=== PATIENT | male | born 1950 | race Caucasian/White ===

== ENCOUNTER → 2016-10-15 | Outpatient (CLI) | payer MEDICARE ==
[2016-10-15 09:25] LABS: Basophils % (A) 1 %; CH 33.1; CHCM 32.6; Eosinophils # (A) 0.1 k/uL (0-0.7); Eosinophils % (A) 2 %; HDW 2.69; Luc # (Auto) 0.13; Luc % (Auto) 3; Lymphocytes # (A) 0.8 k/uL (1.0-4.8); Lymphocytes % (A) 20 %; MCH 34.9 pg (25.0-35.0); MCHC 34.2 g/dL (31.0-37.0); MCV 102.2 fL (80.0-100.0); Macrocytosis Slight; Mean Platelet Volume 7.7; Monocytes # (A) 0.3 k/uL (0-1.0); Monocytes % (A) 8 %; Neutrophils # (A) 2.7 k/uL (1.3-7.7); Neutrophils % (A) 66 %; RDW 14.6 % (11.5-15.5); WBC 4.1 k/uL (3.8-10.6); WBC (Perox) 3.56
[2016-10-15 09:37] LABS: ALT 38 U/L (21-72); AST 30 U/L (17-59); Alkaline Phosphatase 107 U/L (38-126); Anion Gap 7 mmol/L; Blood Urea Nitrogen 18 mg/dL (9-20); Calcium 9.3 mg/dL (8.4-10.2); Carbon Dioxide 29 mmol/L (22-30); Chloride 105 mmol/L (98-107); Cholesterol 154 mg/dL (<200); Glucose 91 mg/dL (74-99); HDL Cholesterol 65 mg/dL (40-60); Non-African American GFR(MDRD) >60 (>60 ml/min/1.73 sqM); Sodium 141 mmol/L (137-145); Total Protein 6.9 g/dL (6.3-8.2); Triglycerides 121 mg/dL (<150)
[2016-10-15 09:43] LABS: Potassium 5.4 mmol/L (3.5-5.1)
== END | disposition home or self-care (01) ==
LOC: LABWHC1 08:55
PROVIDERS: ATTEND Internal Medicine
DX: I25.10 Atherosclerotic heart disease of native coronary artery without angina pectoris (principal)
CPT/HCPCS: 36415; 80053; 80061; 85025

== ENCOUNTER 2018-04-21 13:35 | Inpatient (IN) | payer MEDICARE ==
[2018-04-21] MEDS ORDERED: ONDANSETRON 4 MG/2 ML VIAL IVP STA (13:50)
[2018-04-21] MEDS ORDERED: MORPHINE SULFATE 4 MG/ML SYRINGE IVP STA (13:50)
--- NOTE | 2018-04-21 13:59 | ED ---
Lower Extremity Injury HPI - General Chief Complaint: Extremity Injury, Lower Stated Complaint: Fall/hip pain Time Seen by Provider: 04/21/18 13:41 Source: patient, EMS, RN notes reviewed Mode of arrival: EMS Limitations: no limitations - History of Present Illness Initial Comments: 68-year-old male presents emergency Department chief complaint of fall. Patient states he fell no night was able to get back in his bed but states he was not able to get out. Family kept calling noticed that he was on instantly went to check on him and noticed that he was still in bed. Patient states that he had a mechanical fall there is no loss conscious. Denies any head injury. Patient complains of left hip pain. Patient's had prior orthopedic surgery by Dr. Yates on his back. Patient states that he has no chest pain or shortness breath no nausea vomiting. Patient states his pain is a 10 out of 10 at this time he was not given pain meds by EMS. - Related Data Home Medications Medication Instructions Recorded Confirmed Aspirin EC [Ecotrin Low Dose] 81 mg PO DAILY 04/21/18 04/21/18 Atorvastatin [Lipitor] 20 mg PO HS 04/21/18 04/21/18 Ergocalciferol (Vitamin D2) 50,000 unit PO TH 04/21/18 04/21/18 [Vitamin D2] Fish Oil/Dha/Epa [Fish Oil 1,200 1 cap PO DAILY 04/21/18 04/21/18 mg Fish Oil] Gabapentin 600 mg PO TID 04/21/18 04/21/18 Hydrocodone/Acetaminophen [[place] 1 tab PO BID PRN 04/21/18 04/21/18 10-325] rOPINIRole HCL [Requip] 1 mg PO HS 04/21/18 04/21/18 Allergies Allergy/AdvReac Type Severity Reaction Status Date / Time Penicillins AdvReac Unknown Verified 04/21/18 14:07 Review of Systems ROS Statement: Those systems with pertinent positive or pertinent negative responses have been documented in the HPI. ROS Other: All systems not noted in ROS Statement are negative. Past Medical History Past Medical History: CVA/TIA, Hyperlipidemia, Hypertension Additional Past Medical History / Comment(s): Back pain History of Any Multi-Drug Resistant Organisms: Unobtainable Past Surgical History: Back Surgery Past Psychological History: No Psychological Hx Reported Smoking Status: Current every day smoker Past Alcohol Use History: Rare Past Drug Use History: Marijuana General Exam Limitations: no limitations General appearance: alert, in no apparent distress Head exam: Present: atraumatic, normocephalic, normal inspection Eye exam: Present: normal appearance, PERRL, EOMI. Absent: scleral icterus, conjunctival injection, periorbital swelling Respiratory exam: Present: normal lung sounds bilaterally. Absent: respiratory distress, wheezes, rales, rhonchi, stridor Cardiovascular Exam: Present: regular rate, normal rhythm, normal heart sounds. Absent: systolic murmur, diastolic murmur, rubs, gallop, clicks GI/Abdominal exam: Present: soft, normal bowel sounds. Absent: distended, tenderness, guarding, rebound, rigid Extremities exam: Present: other (Shortening rotation noted of the left leg, tenderness the left hip, pulses equal bilaterally lower extremity no discoloration equal warmth) Neurological exam: Present: alert, oriented X3, CN II-XII intact, reflexes normal. Absent: motor sensory deficit Skin exam: Present: warm, dry, intact, normal color. Absent: rash Course Vital Signs 04/21/18 04/21/18 13:37 14:41 Temperature 98.2 F Pulse Rate 99 97 Respiratory 18 16 Rate Blood Pressure 144/111 149/77 O2 Sat by Pulse 90 L 95 Oximetry Medical Decision Making - Medical Decision Making [age] male present emergency from for fall left hip pain. Patient has left from all night fracture. Case discussed with Connie with orthopedics associate patient will be admitted - Lab Data Result diagrams: 04/21/18 14:01 04/21/18 14:01 Lab Results 04/21/18 04/21/18 Range/Units 14:01 14:01 WBC 11.7 H (3.8-10.6) k/uL RBC 4.99 (4.30-5.90) m/uL Hgb 16.5 (13.0-17.5) gm/dL Hct 50.2 (39.0-53.0) % MCV 100.4 H (80.0-100.0) fL MCH 33.0 (25.0-35.0) pg MCHC 32.8 (31.0-37.0) g/dL RDW 14.8 (11.5-15.5) % Plt Count 149 L (150-450) k/uL Neutrophils % 89 % Lymphocytes % 4 % Monocytes % 6 % Eosinophils % 1 % Basophils % 0 % Neutrophils # 10.3 H (1.3-7.7) k/uL Lymphocytes # 0.5 L (1.0-4.8) k/uL Monocytes # 0.7 (0-1.0) k/uL Eosinophils # 0.1 (0-0.7) k/uL Basophils # 0.0 (0-0.2) k/uL Macrocytosis Slight Sodium 138 (137-145) mmol/L Potassium 5.0 (3.5-5.1) mmol/L Chloride 105 (98-107) mmol/L Carbon Dioxide 26 (22-30) mmol/L Anion Gap 7 mmol/L BUN 10 (9-20) mg/dL Creatinine 0.87 (0.66-1.25) mg/dL Est GFR (CKD-EPI)AfAm >90 (>60 ml/min/1.73 sqM) Est GFR (CKD-EPI)NonAf 88 (>60 ml/min/1.73 sqM) Glucose 122 H (74-99) mg/dL Calcium 9.3 (8.4-10.2) mg/dL Total Bilirubin 1.0 (0.2-1.3) mg/dL AST 27 (17-59) U/L ALT 35 (21-72) U/L Alkaline Phosphatase 104 (38-126) U/L Total Protein 6.3 (6.3-8.2) g/dL Albumin 3.7 (3.5-5.0) g/dL Disposition Clinical Impression: Left displaced femoral neck fracture Disposition: ADMITTED IP TO THIS HOSP Condition: Fair Referrals: Radha Ponce MD [Primary Care Provider] - 1-2 days
[2018-04-21 14:17] LABS: Basophils % (A) 0 %; Eosinophils # (A) 0.1 k/uL (0-0.7); Eosinophils % (A) 1 %; HCT 50.2 % (39.0-53.0); HGB 16.5 gm/dL (13.0-17.5); Lymphocytes # (A) 0.5 k/uL (1.0-4.8); Lymphocytes % (A) 4 %; MCHC 32.8 g/dL (31.0-37.0); MCV 100.4 fL (80.0-100.0); Macrocytosis Slight; Mean Platelet Volume 7.3; Monocytes # (A) 0.7 k/uL (0-1.0); Monocytes % (A) 6 %; Neutrophils # (A) 10.3 k/uL (1.3-7.7); Neutrophils % (A) 89 %; Platelet Count 149 k/uL (150-450); RBC 4.99 m/uL (4.30-5.90); RDW 14.8 % (11.5-15.5); WBC 11.7 k/uL (3.8-10.6)
[2018-04-21 14:31] LABS: ALT 35 U/L (21-72); AST 27 U/L (17-59); Albumin 3.7 g/dL (3.5-5.0); Alkaline Phosphatase 104 U/L (38-126); Anion Gap 7 mmol/L; Blood Urea Nitrogen 10 mg/dL (9-20); Calcium 9.3 mg/dL (8.4-10.2); Carbon Dioxide 26 mmol/L (22-30); Chloride 105 mmol/L (98-107); Glucose 122 mg/dL (74-99); Sodium 138 mmol/L (137-145); Total Protein 6.3 g/dL (6.3-8.2)
[2018-04-21 14:32] LABS: Partial Thromboplastin Time 21.5 sec (22.0-30.0); Prothrombin Time 9.6 sec (9.0-12.0)
[2018-04-21] MEDS ORDERED: HYDROmorphone 1 MG/ML 1 ML SYRINGE IVP STA (14:38)
[2018-04-21] MEDS ORDERED: NICOTINE 21MG/24HR PATCH TRANSDERM STA (14:43)
--- NOTE | 2018-04-21 14:45 | XR ---
EXAMINATION TYPE: XR Hip LT and AP Pelvis DATE OF EXAM: 04/21/2018 COMPARISON: NONE HISTORY: Trauma and pain TECHNIQUE: A single AP view of the pelvis is obtained. Two views of the left hip are obtained. FINDINGS: Left femoral neck fracture appears comminuted and there is resulting varus deformity. No di slocation. Vascular calcifications noted within the pelvis. There is a generator in the left gluteal region. Degenerative disc changes are noted incidentally in the lower lumbar spine. IMPRESSION: Left hip fracture.
[2018-04-21] MEDS ORDERED: HYDROmorphone 1 MG/ML 1 ML SYRINGE IVP PRN (14:59)
[2018-04-21] MEDS ORDERED: NALOXONE 0.4 MG/ML 1 ML VIAL IV PRN (14:59)
--- NOTE | 2018-04-21 15:05 | XR ---
EXAMINATION TYPE: XR chest 1V DATE OF EXAM: 04/21/2018 COMPARISON: 03/19/2012 HISTORY: Fall, pain TECHNIQUE: Single frontal view of the chest is obtained. FINDINGS: There is no focal air space opacity, pleural effusion, or pneumothorax seen. The cardiac silhouette size is within normal limits. Scoliosis within the thoracic spine. Stimulator leads are in the midline. IMPRESSION: 1. No acute process.
[2018-04-21] MEDS: SODIUM CHLORIDE 0.9% 1,000 ML IV SCH (20:00)
[2018-04-21 20:05] LABS: Appearance,Urine Clear (Clear); Bacteria,Urine Rare /hpf; Bilirubin,Urine Negative (Negative); Blood,Urine Negative (Negative); Color,Urine Yellow; Glucose,Urine (UA) Negative (Negative); Ketones,Urine 1+ (Negative); Leukocyte Esterase,Urine Negative (Negative); Mucus,Urine Moderate /hpf; Nitrite,Urine Negative (Negative); Protein,Urine 1+ (Negative); RBC,Urine 2 /hpf (0-5); Specific Gravity,Urine 1.022 (1.001-1.035); WBC,Urine 1 /hpf (0-5)
[2018-04-21] MEDS: ATORVASTATIN 20 MG TAB PO SCH (23:09)
[2018-04-21] MEDS: HYDROmorphone 1 MG/ML 1 ML SYRINGE IVP PRN (23:10)
[2018-04-22] MEDS: HYDROmorphone 1 MG/ML 1 ML SYRINGE IVP PRN ×6 (02:48→22:24)
[2018-04-22] MEDS: SODIUM CHLORIDE 0.9% 1,000 ML IV SCH ×2 (04:27→18:51)
--- NOTE | 2018-04-22 08:52 | P.HPOR ---
History of Present Illness H&P Date: 04/22/18 This is a 68-year-old male who is admitted for left hip fracture. Patient states that he fell backwards yesterday and hit his head and his left hip. Patient states that he was unable to stand up after this. X-rays done in the emergency room show a femoral neck fracture of the left femur. Patient denies being on any anticoagulation. Patient's past medical history significant for coronary artery disease, COPD, CVA/TIA, GERD, hyperlipidemia and hypertension. Patient denies any fever/chills, numbness, weakness, tingling, abdominal pain, shortness of breath or chest pain. Review of Systems See HPI. Past Medical History Past Medical History: Coronary Artery Disease (CAD), COPD, CVA/TIA, GERD/Reflux , Hyperlipidemia, Hypertension Additional Past Medical History / Comment(s): "age 29 fell off a bridge / damaged lower vertebre,Back pain ,constipation d/t pain meds, arthritis, per [facility] 2011 gave hx of past mi 1994- family unable to verify this. 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 AAA- SIZE UNK History of Any Multi-Drug Resistant Organisms: Unobtainable Past Surgical History: Back Surgery, Cholecystectomy Past Anesthesia/Blood Transfusion Reactions: No Reported Reaction Smoking Status: Current every day smoker - Past Family History Father Family Medical History: No Reported History Mother Additional Family Medical History / Comment(s): polio Medications and Allergies Home Medications Medication Instructions Recorded Confirmed Type Aspirin EC [Ecotrin Low Dose] 81 mg PO DAILY 04/21/18 04/21/18 History Atorvastatin [Lipitor] 20 mg PO HS 04/21/18 04/21/18 History Ergocalciferol (Vitamin D2) 50,000 unit PO TH 04/21/18 04/21/18 History [Vitamin D2] Fish Oil/Dha/Epa [Fish Oil 1,200 1 cap PO DAILY 04/21/18 04/21/18 History mg Fish Oil] Gabapentin 600 mg PO TID 04/21/18 04/21/18 History Hydrocodone/Acetaminophen [[place] 1 tab PO BID PRN 04/21/18 04/21/18 History 10-325] rOPINIRole HCL [Requip] 1 mg PO HS 04/21/18 04/21/18 History Allergies Allergy/AdvReac Type Severity Reaction Status Date / Time Penicillins AdvReac Unknown Verified 04/21/18 14:07 Physical Examination On exam patient is lying comfortably in no acute distress. There is tenderness to palpation over the left hip. Left lower extremity is shortened and externally rotated. Calf is soft and nontender to palpation. Patient has full foot and ankle motion without pain or difficulty. Dorsalis pedis pulses 2+. Neurovascular status and circulatory status are intact. Exams of the head, neck , bilateral upper extremities and right lower extremity are within normal limits. Results X-rays of the left hip and pelvis show a displaced femoral neck fracture of the left femur. - Labs Labs: Abnormal Lab Results - Last 24 Hours (Table) 04/21/18 04/21/18 04/21/18 Range/Units 14:01 14:01 14:01 WBC 11.7 H (3.8-10.6) k/uL MCV 100.4 H (80.0-100.0) fL Plt Count 149 L (150-450) k/uL Neutrophils # 10.3 H (1.3-7.7) k/uL Lymphocytes # 0.5 L (1.0-4.8) k/uL APTT 21.5 L (22.0-30.0) sec Glucose 122 H (74-99) mg/dL Urine Protein (Negative) Urine Ketones (Negative) Urine Bacteria (None) /hpf Urine Mucus (None) /hpf 04/21/18 Range/Units 19:30 WBC (3.8-10.6) k/uL MCV (80.0-100.0) fL Plt Count (150-450) k/uL Neutrophils # (1.3-7.7) k/uL Lymphocytes # (1.0-4.8) k/uL APTT (22.0-30.0) sec Glucose (74-99) mg/dL Urine Protein 1+ H (Negative) Urine Ketones 1+ H (Negative) Urine Bacteria Rare H (None) /hpf Urine Mucus Moderate H (None) /hpf H & H 04/21/18 Range/Units 14:01 Hgb 16.5 (13.0-17.5) gm/dL Hct 50.2 (39.0-53.0) % Coagulation 04/21/18 Range/Units 14:01 INR 1.0 (<1.2) Result Diagrams: 04/21/18 14:01 04/21/18 14:01 Assessment and Plan Assessment: Coronary artery disease COPD CVA/TIA GERD Hyperlipidemia Hypertension (1) Fall Current Visit: Yes Status: Acute Code(s): W19.XXXA - UNSPECIFIED FALL, INITIAL ENCOUNTER SNOMED Code(s): 4696940 (2) Left displaced femoral neck fracture Current Visit: Yes Status: Acute Code(s): S72.002A - FRACTURE OF UNSP PART OF NECK OF LEFT FEMUR, INIT SNOMED Code(s): 9197861 Plan: 1. Nonweightbearing to the left lower extremity. 2. Rest and ice the left hip. 3. Continue pain control. 4. Left hip hemiarthroplasty is scheduled for today pending medical clearance and consent.
[2018-04-22] MEDS: GABAPENTIN 300 MG CAP PO SCH ×2 (09:40→20:01)
[2018-04-22] MEDS ORDERED: BUDESONIDE 1 MG/2 ML NEBU INHALATION SCH (11:00)
[2018-04-22] MEDS ORDERED: IPRATROPIUM-ALBUTEROL 3 ML NEB INHALATION PRN (11:22)
[2018-04-22] MEDS ORDERED: IPRATROPIUM-ALBUTEROL 3 ML NEB INHALATION SCH (12:00)
[2018-04-22] MEDS: NICOTINE 21MG/24HR PATCH TRANSDERM SCH (12:29)
--- NOTE | 2018-04-22 13:11 | P.CONS ---
History of Present Illness - Reason for Consult Consult date: 04/22/18 Medical management - History of Present Illness This is a 68-year-old male patient Dr. Ponce with a past medical history of CVA, myocardial infarction, cardiomyopathy, cirrhosis of the liver, AAA being monitored by Dr. Harika Ariza, emphysema, chronic pain status post previous back surgery, pain stimulator placement, tobacco use and dependence. Patient apparently fell in the morning approximately 1 AM while trying to get the bathroom with his walker. He and up falling backwards and hit his head on the bed and landed on his left side. He was not found until 11 hours later. He normally has a shuffling gait but family deny history of Parkinson's. His last fall was 1 year ago. He currently lives with his daughter in a [id number] suite. Patient came into [facility] emergency center for evaluation. Left hip x-ray and pelvis showed a left hip fracture. Chest x-ray showed no acute findings. Hemoglobin was 16.5, white count 11.7, platelet count 149, creatinine 0.87, blood sugar 122. Patient denies history of diabetes. Patient is been admitted under the care of orthopedics with plan for hemiarthroplasty later today which will be postponed. We will ask for clearance from cardiology and primary medicine. Patient will be started on DuoNeb treatments, inhaled steroids, nicotine patch and EKG ordered. Review of Systems All systems: negative Constitutional: Denies chills, Denies fatigue, Denies fever, Denies lethargy, Denies malaise, Denies poor appetite, Denies weight loss Eyes: denies blurred vision, denies pain Ears, nose, mouth and throat: Denies dysphagia, Denies headache, Denies hoarseness, Denies sore throat, Denies vertigo Cardiovascular: Reports shortness of breath, Denies chest pain, Denies decreased exercise tolerance, Denies dyspnea on exertion, Denies edema, Denies leg edema, Denies lightheadedness, Denies palpitations, Denies syncope Respiratory: Reports cough, Reports dyspnea, Reports wheezing, Denies cough with sputum, Denies excessive sputum, Denies hemoptysis, Denies home oxygen Gastrointestinal: Denies abdominal pain, Denies diarrhea, Denies loss of appetite, Denies melena, Denies nausea, Denies vomiting Genitourinary: Denies dysuria, Denies urinary retention Musculoskeletal: Reports gait dysfunction, Reports low back pain, Reports muscle weakness, Denies frequent falls, Denies myalgias Integumentary: Denies pruritus, Denies rash, Denies wounds Neurological: Reports balance difficulties, Reports gait dysfunction, Denies aphasia, Denies change in mentation, Denies confusion, Denies numbness, Denies weakness Psychiatric: Denies anxiety, Denies confusion, Denies depression Endocrine: Denies fatigue, Denies weight change Past Medical History Past Medical History: Coronary Artery Disease (CAD), COPD, CVA/TIA, GERD/Reflux , Hyperlipidemia, Hypertension Additional Past Medical History / Comment(s): "age 29 fell off a bridge / damaged lower vertebre,Back pain ,constipation d/t pain meds, arthritis, per [facility] 2011 gave hx of past mi 1994- family unable to verify this. 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 AAA- SIZE UNK History of Any Multi-Drug Resistant Organisms: Unobtainable Past Surgical History: Back Surgery, Cholecystectomy Additional Past Surgical History / Comment(s): Lumbar spine surgery, pain stimulator Past Anesthesia/Blood Transfusion Reactions: No Reported Reaction Smoking Status: Current every day smoker Additional Past Alcohol Use History / Comment(s): Patient is a smoker one and half packs per day for more than 40 years. He does have a history of heavy alcohol use but has not used a long time. He smokes marijuana on a daily basis. He does not have a medical marijuana card. He denies any other illicit drug use. Patient is . He lives at his daughter's in a [id number] suite. Patient is currently on disability since age 51 secondary to stroke. - Past Family History Father Family Medical History: No Reported History Mother Additional Family Medical History / Comment(s): polio Medications and Allergies Home Medications Medication Instructions Recorded Confirmed Type Aspirin EC [Ecotrin Low Dose] 81 mg PO DAILY 04/21/18 04/21/18 History Atorvastatin [Lipitor] 20 mg PO HS 04/21/18 04/21/18 History Ergocalciferol (Vitamin D2) 50,000 unit PO TH 04/21/18 04/21/18 History [Vitamin D2] Fish Oil/Dha/Epa [Fish Oil 1,200 1 cap PO DAILY 04/21/18 04/21/18 History mg Fish Oil] Gabapentin 600 mg PO TID 04/21/18 04/21/18 History Hydrocodone/Acetaminophen [[place] 1 tab PO BID PRN 04/21/18 04/21/18 History 10-325] rOPINIRole HCL [Requip] 1 mg PO HS 04/21/18 04/21/18 History Allergies Allergy/AdvReac Type Severity Reaction Status Date / Time Penicillins AdvReac Unknown Verified 04/21/18 14:07 Physical Exam Vitals: Vital Signs Temp Pulse Pulse Resp BP BP Pulse Ox 04/22/18 07:00 98.2 F 54 L 12 121/88 92 L 04/21/18 23:58 98.9 F 114 H 15 149/76 94 L 04/21/18 19:44 98.2 F 80 16 139/79 92 L 04/21/18 17:05 98.5 F 93 16 151/84 92 L 04/21/18 16:45 86 16 94/68 94 L 04/21/18 14:41 97 16 149/77 95 04/21/18 13:37 98.2 F 99 18 144/111 90 L Intake and Output 04/21/18 04/22/18 04/22/18 22:59 06:59 14:59 Intake Total 600 Output Total 100 Balance 600 -100 Intake: Intake, IV Titration 600 Amount Sodium Chloride 0.9% 1, 600 000 ml @ 75 mls/hr IV . [id number] [facility] Rx#:[id number] Output: Urine 100 Other: Voiding Method Indwelling Catheter Gen: This is a thin appearing 68-year-old male. He is in bed and appears to be comfortable. Patient answers questions appropriately. HEENT: Head is atraumatic, normocephalic. Pupils equal, round. Sclerae is anicteric. NECK: Supple. No JVD. No lymphadenopathy. No thyromegaly. LUNGS: Clear to auscultation. No wheezes or rhonchi. No intercostal retractions. HEART: Regular rate and rhythm. No murmur. ABDOMEN: Soft. Bowel sounds are present. No masses. No tenderness. EXTREMITIES: No pedal edema. No calf tenderness. Shortening and rotation of the left leg with tenderness to the left hip area. Dorsalis pedis is palpable bilaterally. NEUROLOGICAL: Patient is awake, alert and oriented x3. Cranial nerves 2 through 12 are grossly intact. Results CBC & Chem 7: 04/21/18 14:01 04/21/18 14:01 Labs: Abnormal Lab Results - Last 24 Hours (Table) 04/21/18 04/21/18 04/21/18 Range/Units 14:01 14:01 14:01 WBC 11.7 H (3.8-10.6) k/uL MCV 100.4 H (80.0-100.0) fL Plt Count 149 L (150-450) k/uL Neutrophils # 10.3 H (1.3-7.7) k/uL Lymphocytes # 0.5 L (1.0-4.8) k/uL APTT 21.5 L (22.0-30.0) sec Glucose 122 H (74-99) mg/dL Urine Protein (Negative) Urine Ketones (Negative) Urine Bacteria (None) /hpf Urine Mucus (None) /hpf 04/21/18 Range/Units 19:30 WBC (3.8-10.6) k/uL MCV (80.0-100.0) fL Plt Count (150-450) k/uL Neutrophils # (1.3-7.7) k/uL Lymphocytes # (1.0-4.8) k/uL APTT (22.0-30.0) sec Glucose (74-99) mg/dL Urine Protein 1+ H (Negative) Urine Ketones 1+ H (Negative) Urine Bacteria Rare H (None) /hpf Urine Mucus Moderate H (None) /hpf Assessment and Plan Plan: 1. Left hip fracture admitted under the care of orthopedics with plan for left hemiarthroplasty. Requesting that surgery be delayed until tomorrow. We will have asked for clearance from pulmonary medicine and cardiology. Patient started on nebulizer treatments and EKG ordered. 2. History of stroke. Patient on aspirin 81 mg, Lipitor and fish oil. 3. Abdominal aortic aneurysm being monitored by Dr. Ponce. 4. COPD with mild exacerbation. Patient started on DuoNeb treatments, Symbicort. Pulmicort consult requested. 5. Tobacco use and dependence. Nicotine patch. 6. History of cirrhosis of the liver. Patient has no recent alcohol intake. 7. Patient gives history of myocardial infarction. No complaints of chest pain at this time EKG ordered and cardiology consult. 8. Chronic pain syndrome, chronic low back pain status post surgery and pain stimulator. Continue [place], gabapentin, Requip. 9. Hyperlipidemia. Continue Lipitor. Fish oil on hold. 10. DVT prophylaxis. 11. GI prophylaxis. Pepcid. Patient will be admitted to the hospital for a minimum of 2 night stay. Discharge plan: Subacute rehab Impression and plan of care have been directed as dictated by the signing physician. Sammie Pena nurse practitioner acting as scribe for signing physician.
--- NOTE | 2018-04-22 13:36 | P.CNPUL ---
History of Present Illness Consult date: 04/22/18 Requesting physician: Richi Gan Reason for consult: other Chief complaint: Preoperative pulmonary clearance, left displaced femoral neck fracture History of present illness: This is a 68-year-old white male patient Dr. Ponce, who was brought into the emergency department on 04/21/2018 after falling at home, sustaining a hip fracture. Patient fell backwards yesterday at his home, he hit his head and his left hip. He was unable to stand up, or bear weight on the left leg. X- rays were done in the emergency department and showed a femoral neck fracture of the left femur. Patient's past medical history is significant for coronary artery disease, COPD, he is not on oxygen at his baseline, he is a former smoker , he carries [id number] smoking history, previous history of CVA/TIA, GERD, hypertension and hyperlipidemia. Patient was evaluated by orthopedic surgery, and he was recommended for left hip hemiarthroplasty pending medical clearance and consent. From pulmonary standpoint patient denies any shortness of breath, patient does have an extensive smoking history, but he is typically not short of breath on a regular basis. Patient is not on any inhalers on a regular basis. Physical exam reveals diminished breath sounds bilaterally, his chest x- ray showed no acute process. He is currently on 2 L per nasal cannula, and his pulse ox is 94%, patient has been afebrile, hemodynamically stable. Review of Systems All systems: negative Constitutional: Denies chills, Denies fever Eyes: denies blurred vision, denies pain Ears, nose, mouth and throat: Denies headache, Denies sore throat Cardiovascular: Denies chest pain, Denies shortness of breath Respiratory: Denies cough Gastrointestinal: Denies abdominal pain, Denies diarrhea, Denies nausea, Denies vomiting Musculoskeletal: Denies myalgias Integumentary: Denies pruritus, Denies rash Neurological: Denies numbness, Denies weakness Psychiatric: Denies anxiety, Denies depression Endocrine: Denies fatigue, Denies weight change Past Medical History Past Medical History: Coronary Artery Disease (CAD), COPD, CVA/TIA, GERD/Reflux , Hyperlipidemia, Hypertension Additional Past Medical History / Comment(s): "age 29 fell off a bridge / damaged lower vertebre,Back pain ,constipation d/t pain meds, arthritis, per [facility] 2011 gave hx of past mi 1994- family unable to verify this. 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 AAA- SIZE UNK History of Any Multi-Drug Resistant Organisms: Unobtainable Past Surgical History: Back Surgery, Cholecystectomy Additional Past Surgical History / Comment(s): Lumbar spine surgery, pain stimulator Past Anesthesia/Blood Transfusion Reactions: No Reported Reaction Smoking Status: Current every day smoker Additional Past Alcohol Use History / Comment(s): Patient is a smoker one and half packs per day for more than 40 years. He does have a history of heavy alcohol use but has not used a long time. He smokes marijuana on a daily basis. He does not have a medical marijuana card. He denies any other illicit drug use. Patient is . He lives at his daughter's in a [id number] suite. Patient is currently on disability since age 51 secondary to stroke. - Past Family History Father Family Medical History: No Reported History Mother Additional Family Medical History / Comment(s): polio Medications and Allergies Home Medications Medication Instructions Recorded Confirmed Type Aspirin EC [Ecotrin Low Dose] 81 mg PO DAILY 04/21/18 04/21/18 History Atorvastatin [Lipitor] 20 mg PO HS 04/21/18 04/21/18 History Ergocalciferol (Vitamin D2) 50,000 unit PO TH 04/21/18 04/21/18 History [Vitamin D2] Fish Oil/Dha/Epa [Fish Oil 1,200 1 cap PO DAILY 04/21/18 04/21/18 History mg Fish Oil] Gabapentin 600 mg PO TID 04/21/18 04/21/18 History Hydrocodone/Acetaminophen [[place] 1 tab PO BID PRN 04/21/18 04/21/18 History 10-325] rOPINIRole HCL [Requip] 1 mg PO HS 04/21/18 04/21/18 History Allergies Allergy/AdvReac Type Severity Reaction Status Date / Time Penicillins AdvReac Unknown Verified 04/21/18 14:07 Physical Exam Vitals: Vital Signs Temp Pulse Pulse Resp BP BP Pulse Ox 04/22/18 07:00 98.2 F 54 L 12 121/88 92 L 04/21/18 23:58 98.9 F 114 H 15 149/76 94 L 04/21/18 19:44 98.2 F 80 16 139/79 92 L 04/21/18 17:05 98.5 F 93 16 151/84 92 L 04/21/18 16:45 86 16 94/68 94 L 04/21/18 14:41 97 16 149/77 95 04/21/18 13:37 98.2 F 99 18 144/111 90 L Intake and Output 04/21/18 04/22/18 04/22/18 22:59 06:59 14:59 Intake Total 600 Output Total 100 Balance 600 -100 Intake: Intake, IV Titration 600 Amount Sodium Chloride 0.9% 1, 600 000 ml @ 75 mls/hr IV . [id number] [facility] Rx#:[id number] Output: Urine 100 Other: Voiding Method Indwelling Catheter GENERAL EXAM: Alert, pleasant 68-year-old white male, comfortable in no apparent distress. HEAD: Normocephalic/atraumatic. EYES: Normal reaction of pupils, equal size. Conjunctiva pink, sclera white. NOSE: Clear with pink turbinates. THROAT: No erythema or exudates. NECK: No masses, no JVD, no thyroid enlargement, no adenopathy. CHEST: No chest wall deformity. Symmetrical expansion. LUNGS: Diminished breath sounds bilaterally with no crackles, wheeze, rhonchi or dullness. CVS: Regular rate and rhythm, normal S1 and S2, no gallops, no murmurs, no rubs ABDOMEN: Soft, nontender. No hepatosplenomegaly, normal bowel sounds, no guarding or rigidity. EXTREMITIES: No clubbing, no edema, no cyanosis, 2+ pulses and upper and lower extremities. MUSCULOSKELETAL: Muscle strength and tone normal. Tenderness to palpation over the left hip, left extremity shortened and externally rotated, soft, and nontender, distal pulses are intact SPINE: No scoliosis or deformity SKIN: No rashes CENTRAL NERVOUS SYSTEM: Alert and oriented -3. No focal deficits, tone is normal in all 4 extremities. PSYCHIATRIC: Alert and oriented -3. Appropriate affect. Intact judgment and insight. Results - Laboratory Findings CBC and BMP: 04/21/18 14:01 04/21/18 14:01 PT/INR, D-dimer PT 9.6 sec (9.0-12.0) 04/21/18 14:01 INR 1.0 (<1.2) 04/21/18 14:01 Abnormal lab findings: Abnormal Labs 04/21/18 04/21/18 04/21/18 14:01 14:01 14:01 WBC 11.7 H MCV 100.4 H Plt Count 149 L Neutrophils # 10.3 H Lymphocytes # 0.5 L APTT 21.5 L Glucose 122 H Urine Protein Urine Ketones Urine Bacteria Urine Mucus 04/21/18 19:30 WBC MCV Plt Count Neutrophils # Lymphocytes # APTT Glucose Urine Protein 1+ H Urine Ketones 1+ H Urine Bacteria Rare H Urine Mucus Moderate H - Diagnostic Findings Chest x-ray: report reviewed Assessment and Plan Plan: Assessment: #1. Fall at home #2. Left displaced femoral neck fracture, #3. COPD, severity of which is unknown at this time. Patient is not oxygen or prednisone dependent at his baseline #4. Coronary artery disease #5. Previous history of CVA/TIA #6. GERD #7. Hypertention #8. Hyperlipidemia Plan: We'll start the patient on DuoNeb nebulized treatments, we will add Symbicort 160/4.52 puffs twice daily, provide incentive spirometry, and encourage patient to deep breathe and cough. Chest x-ray has been reviewed by Dr. Dunbar, and showed no acute pulmonary process. From pulmonary perspective patient is cleared for his left hip hemiarthroplasty. We'll follow the patient in the postop period. Patient is an increased but acceptable risk for surgery based his history. I performed a history & physical examination of the patient and discussed their management with my nurse practitioner, Radha Leung. I reviewed the nurse practitioner's note and agree with the documented findings and plan of care. Lung sounds are diminished. The findings and the impression was discussed with the patient. I attest to the documentation by the nurse practitioner. Time with Patient: Greater than 30
--- NOTE | 2018-04-22 13:36 | P.CRDCN ---
History of Present Illness History of present illness: This is a pleasant 68-year-old male past medical history significant for hypertension in the past for which he used to take medications and currently is not on any type hypertensive agents, history of CVA in the past, dyslipidemia, COPD and heavy nicotine dependence. He denies any history of coronary artery disease, his daughter at the bedside as well states he does not have any history of coronary artery disease that they're aware of. We have been asked to see him in consultation for preoperative evaluation. Last night while getting up from bed to use the restroom he uses a walker to walk he lost his balance and fell backwards striking his left hip on the concrete floor. He suffered a fracture and is scheduled for surgery tomorrow morning. He denies having any symptoms of dizziness, chest pain, palpitations, nausea or diaphoresis prior to falling. He states he was just unsteady on his feet. He is seen and examined laying flat in bed in no acute distress. Respirations are equal and unlabored. He denies use of alcohol although he does smell of alcohol the time of my exam. There is no EKG for review. Chest x-ray negative for acute cardiopulmonary process. Laboratory data reviewed, WBC 11.7, hemoglobin 16.5, platelets 149, sodium 138, potassium 5, creatinine 0.87. Current cardiac medication includes aspirin 81 mg daily and atorvastatin 20 mg daily. There is no old echocardiogram for review. At the time of my exam: CONSTITUTIONAL: Denies fever. Denies chills. EYES: Denies blurred vision. Denies vision changes. Denies eye pain. EARS, NOSE, MOUTH & THROAT: Denies headache. Denies sore throat. Denies ear pain. CARDIOVASCULAR: Denies chest pain. Denies shortness of breath. Denies orthopnea. Denies PND. Denies palpitations. RESPIRATORY: Denies cough. GASTROINTESTINAL: Denies abdominal pain. Denies diarrhea. Denies constipation. Denies nausea. Denies vomiting. MUSCULOSKELETAL: Denies myalgias. INTEGUMENTARY: Denies pruitis. Denies rash. NEUROLOGIC: Denies numbness. Denies tingling. Denies weakness. PSYCHIATRIC: Denies anxiety. Denies depression. ENDOCRINE: Denies fatigue. Denies weight change. Denies polydipsia. Denies polyurina. GENITOURINARY: Denies burning, hematuria or urgency with micturation. HEMATOLOGIC: Denies history of anemia. Denies bleeding. Blood pressure 121/88 heart rate 54 afebrile maintaining oxygen saturation on room air GENERAL: This is a 68-year-old male in no apparent distress at the time of my examination. HEENT: Head is atraumatic, normocephalic. Pupils are equal, round. Sclerae anicteric. Conjunctivae are clear. Mucous membranes of the mouth are moist. Neck is supple. There is no jugular venous distention. No carotid bruit is heard. LUNGS: Course rhonchi noted throughout, no rales or wheezes. No chest wall tenderness is noted on palpation or with deep breathing. HEART: Regular rate and rhythm without murmurs, rubs or gallops. S1 and S2 heard. ABDOMEN: Soft, nontender. Bowel sounds are heard. No organomegaly noted. EXTREMITIES: No evidence of peripheral edema and no calf tenderness noted. VASCULAR: Radial and dorsalis pedis pulses palpated, no evidence of clubbing. NEUROLOGIC: Patient is awake, alert and oriented x3. ASSESSMENT Left hip fracture status post mechanical fall Hypertension, in the past was on medications however does not currently take any antihypertensives Dyslipidemia COPD History of CVA Chronic nicotine dependence PLAN Obtain EKG. Obtain 2-D echocardiogram and Doppler study to assess cardiac structure and function. No overt heart failure or anginal symptoms on exam. No acute contraindications to surgical intervention from a cardiac perspective. Recommend pulmonary consultation secondary to significant tobacco history and evidence of pulmonary dysfunction on exam. Smoking cessation recommended Thank you kindly for this consultation. Nurse Practitioner note has been reviewed, I agree with a documented findings and plan of care. Patient was seen and examined. Past Medical History Past Medical History: Coronary Artery Disease (CAD), COPD, CVA/TIA, GERD/Reflux , Hyperlipidemia, Hypertension Additional Past Medical History / Comment(s): "age 29 fell off a bridge / damaged lower vertebre,Back pain ,constipation d/t pain meds, arthritis, per [facility] 2011 gave hx of past mi 1994- family unable to verify this. 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 AAA- SIZE UNK History of Any Multi-Drug Resistant Organisms: Unobtainable Past Surgical History: Back Surgery, Cholecystectomy Additional Past Surgical History / Comment(s): Lumbar spine surgery, pain stimulator Past Anesthesia/Blood Transfusion Reactions: No Reported Reaction Smoking Status: Current every day smoker Additional Past Alcohol Use History / Comment(s): Patient is a smoker one and half packs per day for more than 40 years. He does have a history of heavy alcohol use but has not used a long time. He smokes marijuana on a daily basis. He does not have a medical marijuana card. He denies any other illicit drug use. Patient is . He lives at his daughter's in a [id number] suite. Patient is currently on disability since age 51 secondary to stroke. - Past Family History Father Family Medical History: No Reported History Mother Additional Family Medical History / Comment(s): polio Medications and Allergies Home Medications Medication Instructions Recorded Confirmed Type Aspirin EC [Ecotrin Low Dose] 81 mg PO DAILY 04/21/18 04/21/18 History Atorvastatin [Lipitor] 20 mg PO HS 04/21/18 04/21/18 History Ergocalciferol (Vitamin D2) 50,000 unit PO TH 04/21/18 04/21/18 History [Vitamin D2] Fish Oil/Dha/Epa [Fish Oil 1,200 1 cap PO DAILY 04/21/18 04/21/18 History mg Fish Oil] Gabapentin 600 mg PO TID 04/21/18 04/21/18 History Hydrocodone/Acetaminophen [[place] 1 tab PO BID PRN 04/21/18 04/21/18 History 10-325] rOPINIRole HCL [Requip] 1 mg PO HS 04/21/18 04/21/18 History Allergies Allergy/AdvReac Type Severity Reaction Status Date / Time Penicillins AdvReac Unknown Verified 04/21/18 14:07 Physical Exam Vitals: Vital Signs Temp Pulse Pulse Resp BP BP Pulse Ox 04/22/18 07:00 98.2 F 54 L 12 121/88 92 L 04/21/18 23:58 98.9 F 114 H 15 149/76 94 L 04/21/18 19:44 98.2 F 80 16 139/79 92 L 04/21/18 17:05 98.5 F 93 16 151/84 92 L 04/21/18 16:45 86 16 94/68 94 L 04/21/18 14:41 97 16 149/77 95 04/21/18 13:37 98.2 F 99 18 144/111 90 L Intake and Output 04/21/18 04/22/18 04/22/18 22:59 06:59 14:59 Intake Total 600 Output Total 100 Balance 600 -100 Intake: Intake, IV Titration 600 Amount Sodium Chloride 0.9% 1, 600 000 ml @ 75 mls/hr IV . [id number] [facility] Rx#:[id number] Output: Urine 100 Other: Voiding Method Indwelling Catheter Results 04/21/18 14:01 04/21/18 14:01 Cardiac Enzymes 04/21/18 Range/Units 14:01 AST 27 (17-59) U/L Coagulation 04/21/18 Range/Units 14:01 PT 9.6 (9.0-12.0) sec APTT 21.5 L (22.0-30.0) sec CBC 04/21/18 Range/Units 14:01 WBC 11.7 H (3.8-10.6) k/uL RBC 4.99 (4.30-5.90) m/uL Hgb 16.5 (13.0-17.5) gm/dL Hct 50.2 (39.0-53.0) % Plt Count 149 L (150-450) k/uL Comprehensive Metabolic Panel 04/21/18 Range/Units 14:01 Sodium 138 (137-145) mmol/L Potassium 5.0 (3.5-5.1) mmol/L Chloride 105 (98-107) mmol/L Carbon Dioxide 26 (22-30) mmol/L BUN 10 (9-20) mg/dL Creatinine 0.87 (0.66-1.25) mg/dL Glucose 122 H (74-99) mg/dL Calcium 9.3 (8.4-10.2) mg/dL AST 27 (17-59) U/L ALT 35 (21-72) U/L Alkaline Phosphatase 104 (38-126) U/L Total Protein 6.3 (6.3-8.2) g/dL Albumin 3.7 (3.5-5.0) g/dL Current Medications Generic Name Dose Route Start Last Admin Trade Name Freq PRN Reason Stop Dose Admin Albuterol/Ipratropium 3 ml 04/22/18 12:00 Duoneb 0.5 Mg-3 Mg/3 Ml Soln INHALATION RT-Q4H [facility] Albuterol/Ipratropium 3 ml 04/22/18 11:22 Duoneb 0.5 Mg-3 Mg/3 Ml Soln INHALATION RT-Q2H PRN Shortness Of Breath Or Wheezing Atorvastatin Calcium 20 mg 04/21/18 21:30 04/21/18 23:09 Lipitor PO 20 mg HS LIAM Administration Budesonide/Formoterol Fumarate 2 puff 04/22/18 20:00 Symbicort 160-4.5 Mcg Inhaler INHALATION RT-BID [facility] Famotidine 20 mg 04/23/18 09:00 Pepcid PO DAILY [facility] Gabapentin 600 mg 04/22/18 09:00 04/22/18 09:40 Neurontin PO Not Given BID LIAM Hydromorphone HCl 0.5 mg 04/21/18 14:59 04/21/18 20:33 Dilaudid IVP 0.5 mg Q3HR PRN Administration Moderate Pain Hydromorphone HCl 1 mg 04/21/18 14:59 04/22/18 12:29 Dilaudid IVP 1 mg Q3HR PRN Administration Severe Pain Sodium Chloride 1,000 mls @ 75 mls/hr 04/21/18 15:00 04/22/18 04:27 Saline 0.9% IV 75 mls/hr .[id number] LIAM Administration Naloxone HCl 0.2 mg 04/21/18 14:59 Narcan IV Q2M PRN Opioid Reversal Nicotine 1 patch 04/22/18 11:00 04/22/18 12:29 Habitrol 21mg/24hr Patch TRANSDERM 1 patch DAILY LIAM Administration Ondansetron HCl 4 mg 04/21/18 14:59 Zofran IVP Q8HR PRN Nausea And Vomiting Ropinirole HCl 1 mg 04/21/18 21:30 04/21/18 23:09 Requip PO 1 mg HS LIAM Administration Intake and Output 04/21/18 04/22/18 04/22/18 22:59 06:59 14:59 Intake Total 600 Output Total 100 Balance 600 -100 Intake: Intake, IV Titration 600 Amount Sodium Chloride 0.9% 1, 600 000 ml @ 75 mls/hr IV . [id number] [facility] Rx#:[id number] Output: Urine 100 Other: Voiding Method Indwelling Catheter 04/21/18 14:01 04/21/18 14:01
[2018-04-22] MEDS: IPRATROPIUM-ALBUTEROL 3 ML NEB INHALATION SCH ×4 (16:16→23:35)
[2018-04-22] MEDS: ATORVASTATIN 20 MG TAB PO SCH (20:01)
[2018-04-22] MEDS: SYMBICORT 160-4.5 MCG INHALER INHALATION SCH (21:18)
[2018-04-23] MEDS: HYDROmorphone 1 MG/ML 1 ML SYRINGE IVP PRN ×4 (01:35→20:32)
[2018-04-23] MEDS: IPRATROPIUM-ALBUTEROL 3 ML NEB INHALATION SCH ×5 (04:39→21:07)
[2018-04-23] MEDS: SODIUM CHLORIDE 0.9% 1,000 ML IV SCH ×3 (05:26→17:24)
[2018-04-23] MEDS ORDERED: IV FLUID CONTINUATION 1,000 ML IV ONE ×2 (07:58)
[2018-04-23] MEDS: SYMBICORT 160-4.5 MCG INHALER INHALATION SCH ×2 (08:04→21:07)
--- NOTE | 2018-04-23 08:05 | ECHOF ---
Referral Reason:pre-op MEASUREMENTS -------- HEIGHT: 167.6 cm WEIGHT: 74.8 kg BP: RVIDd: 2.8 cm (< 3.3) IVSd: 1.5 cm (0.6 - 1.1) LVIDd: 4.2 cm (3.9 - 5.3) LVPWd: 1.4 cm (0.6 - 1.1) IVSs: 2.2 cm LVIDs: 2.2 cm LVPWs: 1.9 cm Ao Diam: 4.0 cm (2.0 - 3.7) AV Cusp: 1.7 cm (1.5 - 2.6) LA Diam: 2.6 cm (2.7 - 3.8) MV E Jarvis: 0.69 m/s MV DecT: 168 ms MV A Jarvis: 1.08 m/s MV E/A Ratio: 0.64 RAP: 5.00 mmHg RVSP: 12.32 mmHg FINDINGS -------- Resting tachycardia (HR>100bpm). Pt unable to turn due to hip fx. The left ventricular size is normal. There is moderate concentric left ventricular hypertrophy. O verall left ventricular systolic function is normal with, an EF between 60 - 65 %. The right ventricle is normal in size. The left atrium is normal in size. The right atrium is normal in size. Aortic valve is trileaflet and is mildly thickened. There is trace mitral regurgitation. Trace tricuspid regurgitation present. The right ventricular systolic pressure, as measured by Dopp ler, is 12.32mmHg. Pulmonic valve appears structurally normal. The aortic root is dilated measuring 4.0 cm Normal inferior vena cava with normal inspiratory collapse consistent with estimated right atrial pre ssure of 5 mmHg. There is a trivial pericardial effusion present. CONCLUSIONS -------- 1. Resting tachycardia (HR>100bpm). 2. Pt unable to turn due to hip fx. 3. The left ventricular size is normal. 4. There is moderate concentric left ventricular hypertrophy. 5. Overall left ventricular systolic function is normal with, an EF between 60 - 65 %. 6. The right ventricle is normal in size. 7. The left atrium is normal in size. 8. The right atrium is normal in size. 9. Aortic valve is trileaflet and is mildly thickened. 10. There is trace mitral regurgitation. 11. Trace tricuspid regurgitation present. 12. The right ventricular systolic pressure, as measured by Doppler, is 12.32mmHg. 13. Pulmonic valve appears structurally normal. 14. The aortic root is dilated measuring 4.0 cm. 15. Normal inferior vena cava with normal inspiratory collapse consistent with estimated right atrial pressure of 5 mmHg. 16. There is a trivial pericardial effusion present. FRAMING MACHINE TENDER: Margi Singh RDCS
[2018-04-23] MEDS ORDERED: ONDANSETRON 4 MG/2 ML VIAL IVP PRN (08:25)
[2018-04-23] MEDS ORDERED: HYDROcodone/APAP 5-325MG 1 EACH TAB PO PRN (08:25)
[2018-04-23] MEDS ORDERED: DIAZEPAM 5 MG TAB PO PRN (08:25)
[2018-04-23] MEDS ORDERED: fentaNYL (PF) 50 MCG/ML 2 ML AMP IV ONE (08:25)
[2018-04-23] MEDS: ONDANSETRON 4 MG/2 ML VIAL IVP PRN ×3 (08:25→12:59)
[2018-04-23] MEDS ORDERED: NALOXONE 0.4 MG/ML 1 ML VIAL IV PRN (08:25)
[2018-04-23] MEDS ORDERED: HYDROmorphone 1 MG/ML 1 ML SYRINGE IVP PRN ×2 (08:25)
[2018-04-23] MEDS ORDERED: MAGNESIUM HYDROXIDE 2,400 MG/10 ML CUP PO PRN (08:25)
[2018-04-23] MEDS ORDERED: ceFAZolin 2,000 MG in DEXTROSE/WATER 1 50ML.BAG IVPB STA (08:28)
[2018-04-23] MEDS ORDERED: ceFAZolin IN SWFI 2 GM/20 ML SYRINGE IVP STA (08:30)
[2018-04-23] MEDS ORDERED: MIDAZOLAM 2 MG/2 ML VIAL ONE ×2 (09:07)
[2018-04-23] MEDS ORDERED: fentaNYL (PF) 50 MCG/ML 2 ML AMP ONE (09:07)
[2018-04-23] MEDS ORDERED: KETAMINE 10 MG/ML 20 ML VIAL ONE (09:07)
[2018-04-23] MEDS ORDERED: ceFAZolin 3,000 MG in SODIUM CHLORIDE 0.9% IRRIGATIO 3,000 ML IRRIGATION ONE (09:40)
[2018-04-23] MEDS ORDERED: LACTATED RINGERS 1,000 ML IV ONE (09:58)
--- NOTE | 2018-04-23 10:06 | P.OP ---
Date of Procedure: 04/23/18 Preoperative Diagnosis: Subcapital fracture left hip Postoperative Diagnosis: Subcapital fracture left hip Procedure(s) Performed: Left hip hemiarthroplasty Implants: Ni and nephew Polarstem size 3 standard Ni & Nephew tandem unipolar, 49 mm Ni & Nephew tandem unipolar 12/14 taper sleeve, +0 mm All components were press-fit. Anesthesia: spinal Surgeon: Moisés Camargo Renewable Energy Engineer #1: Connie Avila Estimated Blood Loss (ml): 100 Pathology: other (Femoral head) Condition: stable Disposition: PACU Indications for Procedure: This is a 68-year-old gentleman that slipped and fell and sustained a subcapital fracture of his left hip. After discussing the surgical and nonsurgical treatment options with him and his family at length, I recommended a left hip hemiarthroplasty. Informed consent was obtained. Operative Findings: The operative findings are consistent with a subcapital fracture of the left hip Description of Procedure: Patient was seen and evaluated in the preoperative area, consent was reviewed and the operative site was marked with a skin marker. Patient was then brought to the operating room and given 2 g of Ancef intravenously. A spinal anesthetic was administered by the anesthesia department. Patient was then placed in a lateral decubitus position and held with a [place]ral hip positioner. The bony prominences were well-padded and an axillary roll was placed. The hip was then prepped and draped in the usual sterile fashion. A universal timeout was then performed which confirmed the patient's name, surgical site, ALLERGIES, and procedure. A standard anterolateral approach the hip was performed. Skin and subcutaneous tissues were sharply incised with an incision centered over the tip of the greater trochanter. The incision was carefully dissected down to the fascia. The fascia was then split in line with skin incision and a Charnley retractor was gently placed. The abductors were then identified, and the anterior one third of the abductors were released off the trochanter and one large sleeve. The fracture hematoma was evacuated and the proximal femur was exposed by externally rotating the femur. The fracture site was readily visualized. Next , using an osteotomy guide, the proximal femur was osteotomized at the appropriate level of the above the lesser trochanter. This bone was then removed. Attention was then turned to the femoral head. Using a corkscrew, the femoral head was removed from the acetabulum without incident. The acetabulum was inspected, and found to have no significant arthrosis. Femoral head was then measured. Attention was then redirected to the femur. Proximal femur was re-exposed and a box osteotome was used to lateralize the proximal femur. A hand riveter was then used to locate the femoral canal. Sequential broaching was then performed to the appropriate size. The calcar was then planed and trial head and neck were placed. The hip was then gently reduced. Leg lengths were checked and found to be equal. Hip was then taken through a full range of motion was stable throughout. The hip was then gently dislocated with the aid of a bone hook. The trial head and neck were then removed. The femoral broach was then inspected and found to have a secure fit. The broach was then removed. The hip was then copiously irrigated with antibiotic solution with a pulse lavage. Components were then opened and the femoral stem was then impacted into the proximal femur. The trunnion was cleaned and dried, and the femoral head and neck were then impacted. Hip was again gently reduced. Again leg lengths were checked and found to be equal, and the hip was taken through a full range of motion and found to be stable. The hip was again irrigated with pulsatile lavage, then followed by the Irrrisept solution. The abductors were then repaired through drill holes to the bone to the greater trochanter, utilizing #5 Ethibond suture. Next the fascia was repaired with #2 strata fix suture. The subcutaneous tissue was then repaired with 3-0 Vicryl. The subcuticular tissue was then repaired with 3-0 strata fix suture. Skin was then closed with Dermabond tape. A sterile dressing was then applied and the patient was transported to the recovery room in stable condition. Renewable Energy Engineer SHARATH Roach was required due to the complexity of surgery the need for skilled instructor adjunct surgical technician. She assisted with positioning the patient , draping the patient, retraction during the surgery, and closure of the wound.
--- NOTE | 2018-04-23 11:30 | XR ---
EXAMINATION TYPE: XR Hip Complete LT DATE OF EXAM: 04/23/2018 CLINICAL HISTORY: Left hip fracture. TECHNIQUE: Single AP portable view of left hip is obtained immediately postoperatively. COMPARISON: Pelvic and left hip x-ray from 2 days ago. FINDINGS: Metallic hardware from total left hip arthroplasty is seen and appears satisfactory in alig nment and position. There is evidence of recent surgery with subcutaneous gas noted laterally. Medi al groin vascular calcification redemonstrated. IMPRESSION: Metallic hardware from total left hip arthroplasty is satisfactory in position.
[2018-04-23 11:51] LABS: Basophils % (A) 0 %; Eosinophils # (A) 0.3 k/uL (0-0.7); Eosinophils % (A) 2 %; HCT 45.3 % (39.0-53.0); HGB 15.1 gm/dL (13.0-17.5); Lymphocytes # (A) 0.9 k/uL (1.0-4.8); Lymphocytes % (A) 9 %; MCH 33.8 pg (25.0-35.0); MCHC 33.4 g/dL (31.0-37.0); MCV 101.3 fL (80.0-100.0); Macrocytosis Slight; Mean Platelet Volume 7.7; Monocytes # (A) 0.8 k/uL (0-1.0); Monocytes % (A) 7 %; Neutrophils # (A) 8.5 k/uL (1.3-7.7); Neutrophils % (A) 80 %; Platelet Count 118 k/uL (150-450); RBC 4.47 m/uL (4.30-5.90); RDW 14.8 % (11.5-15.5); WBC 10.6 k/uL (3.8-10.6)
[2018-04-23] MEDS: GABAPENTIN 300 MG CAP PO SCH ×2 (12:59→20:33)
[2018-04-23] MEDS: FAMOTIDINE 20 MG TAB PO SCH (12:59)
[2018-04-23] MEDS: NICOTINE 21MG/24HR PATCH TRANSDERM SCH (12:59)
--- NOTE | 2018-04-23 14:30 | P.PN ---
Subjective Progress Note Date: 04/23/18 This is a 68-year-old male patient Dr. Ponce with a past medical history of CVA, myocardial infarction, cardiomyopathy, cirrhosis of the liver, AAA being monitored by Dr. Harika Ariza, emphysema, chronic pain status post previous back surgery, pain stimulator placement, tobacco use and dependence. Patient apparently fell in the morning approximately 1 AM while trying to get the bathroom with his walker. He and up falling backwards and hit his head on the bed and landed on his left side. He was not found until 11 hours later. He normally has a shuffling gait but family deny history of Parkinson's. His last fall was 1 year ago. He currently lives with his daughter in a [id number] suite. Patient came into [facility] emergency center for evaluation. Left hip x-ray and pelvis showed a left hip fracture. Chest x-ray showed no acute findings. Hemoglobin was 16.5, white count 11.7, platelet count 149, creatinine 0.87, blood sugar 122. Patient denies history of diabetes. Patient is been admitted under the care of orthopedics with plan for hemiarthroplasty later today which will be postponed. We will ask for clearance from cardiology and primary medicine. Patient will be started on DuoNeb treatments, inhaled steroids, nicotine patch and EKG ordered. 04/23: Patient has been seen by pulse or medicine and change Pulmicort to Symbicort. Patient was cleared for surgery by Dr. Dunbar. The patient has been seen by cardiology and cleared for surgery. Patient is scheduled for left hip hemiarthroplasty today. Patient has been afebrile. Heart rate running between 96 and 109. Pulse ox 94% on room air. Blood pressure is on the high side this morning at 181/89. Patient is gone for surgery. Objective - Vital Signs Vital signs: Vital Signs Temp 97.7 F 04/23/18 08:07 Pulse 96 04/23/18 08:07 Resp 18 04/23/18 08:07 BP 181/89 04/23/18 08:07 Pulse Ox 94 L 04/23/18 08:07 Intake & Output 04/22/18 04/23/18 04/23/18 18:59 06:59 18:59 Intake Total 750 1200 100 Output Total 600 425 Balance 150 775 100 Intake: IV 100 Intake, IV Titration 750 1200 Amount Sodium Chloride 0.9% 1, 750 1200 000 ml @ 75 mls/hr IV . [id number] [facility] Rx#:[id number] Output: Urine 600 425 Uretheral (Schuler) 600 Other: Voiding Method Indwelling Catheter Indwelling Catheter - Exam Gen: This is a thin appearing 68-year-old male. He is in bed and appears to be comfortable. Patient answers questions appropriately. HEENT: Head is atraumatic, normocephalic. Pupils equal, round. Sclerae is anicteric. NECK: Supple. No JVD. No lymphadenopathy. No thyromegaly. LUNGS: Clear to auscultation. No wheezes or rhonchi. No intercostal retractions. HEART: Regular rate and rhythm. No murmur. ABDOMEN: Soft. Bowel sounds are present. No masses. No tenderness. EXTREMITIES: No pedal edema. No calf tenderness. Shortening and rotation of the left leg with tenderness to the left hip area. Dorsalis pedis is palpable bilaterally. NEUROLOGICAL: Patient is awake, alert and oriented x3. Cranial nerves 2 through 12 are grossly intact. - Labs CBC & Chem 7: 04/23/18 11:18 04/21/18 14:01 Assessment and Plan Plan: 1. Left hip fracture admitted under the care of orthopedics with plan for left hemiarthroplasty. We will have asked for clearance from pulmonary medicine and cardiology. Patient started on nebulizer treatments and EKG ordered. 2. History of stroke. Patient on aspirin 81 mg, Lipitor and fish oil. 3. Abdominal aortic aneurysm being monitored by Dr. Ponce. 4. COPD with mild exacerbation. Patient started on DuoNeb treatments, Symbicort. Pulmicort consult requested. 5. Tobacco use and dependence. Nicotine patch. 6. History of cirrhosis of the liver. Patient has no recent alcohol intake. 7. Patient gives history of myocardial infarction. No complaints of chest pain at this time EKG ordered and cardiology consult. 8. Chronic pain syndrome, chronic low back pain status post surgery and pain stimulator. Continue [place], gabapentin, Requip. 9. Hyperlipidemia. Continue Lipitor. Fish oil on hold. 10. DVT prophylaxis. 11. GI prophylaxis. Pepcid. Discharge plan: Most likely Subacute rehab Impression and plan of care have been directed as dictated by the signing physician. Sammie Pena nurse practitioner acting as scribe for signing physician.
[2018-04-23] MEDS: HYDROcodone/APAP 5-325MG 1 EACH TAB PO PRN (15:02)
[2018-04-23] MEDS: ceFAZolin IN SWFI 2 GM/20 ML SYRINGE IVP SCH (17:24)
[2018-04-23] MEDS: ATORVASTATIN 20 MG TAB PO SCH (20:33)
[2018-04-23] MEDS ORDERED: SENNOSIDES-DOCUSATE SODIUM 1 EACH TAB PO SCH (21:00)
[2018-04-24] MEDS: IPRATROPIUM-ALBUTEROL 3 ML NEB INHALATION SCH ×5 (00:56→16:07)
[2018-04-24] MEDS: ceFAZolin IN SWFI 2 GM/20 ML SYRINGE IVP SCH (01:21)
[2018-04-24] MEDS: HYDROmorphone 1 MG/ML 1 ML SYRINGE IVP PRN (01:38)
[2018-04-24] MEDS: HYDROcodone/APAP 5-325MG 1 EACH TAB PO PRN ×3 (05:33→17:45)
[2018-04-24 07:43] VITALS: RESP 15
--- NOTE | 2018-04-24 07:46 | P.PN ---
Subjective Progress Note Date: 04/24/18 This is a 68-year-old male who is status post left hip hemiarthroplasty. This is postoperative day #1. Patient is seen and evaluated at bedside. Patient states that his pain is controlled today, but he has not been out of bed yet. Patient denies any fever/chills, numbness, weakness, tingling, abdominal pain, shortness of breath or chest pain. Objective - Vital Signs Vital signs: Vital Signs Temp 98.8 F 04/23/18 23:06 Pulse 100 04/24/18 01:11 Resp 14 04/23/18 19:45 BP 143/87 04/23/18 23:06 Pulse Ox 95 04/23/18 23:06 Intake & Output 04/23/18 04/24/18 04/24/18 18:59 06:59 18:59 Intake Total 1001 840 Output Total 300 700 Balance 701 140 Intake: IV 1001 Intake, IV Titration 600 Amount Sodium Chloride 0.9% 1, 600 000 ml @ 75 mls/hr IV . [id number] [facility] Rx#:[id number] Oral 240 Output: Urine 200 700 Estimated Blood Loss 100 Other: Voiding Method Indwelling Catheter # Voids 2 - Exam Patient is in no acute distress and is alert and oriented. Calf is soft and nontender to palpation. Dressing is clean, dry, and intact. Abductor pillow in place. Patient has full foot and ankle motion without pain or difficulty. Neurovascular status and circulatory status are intact. - Labs CBC & Chem 7: 04/23/18 11:18 04/21/18 14:01 Labs: Abnormal Lab Results - Last 24 Hours (Table) 04/23/18 Range/Units 11: MCV 101.3 H (80.0-100.0) fL Plt Count 118 L (150-450) k/uL Neutrophils # 8.5 H (1.3-7.7) k/uL Lymphocytes # 0.9 L (1.0-4.8) k/uL Assessment and Plan Assessment: Coronary artery disease COPD CVA/TIA GERD Hyperlipidemia Hypertension (1) Fall Current Visit: Yes Status: Acute Code(s): W19.XXXA - UNSPECIFIED FALL, INITIAL ENCOUNTER SNOMED Code(s): 9701291 (2) Left displaced femoral neck fracture Current Visit: Yes Status: Acute Code(s): S72.002A - FRACTURE OF UNSP PART OF NECK OF LEFT FEMUR, INIT SNOMED Code(s): 0051879 Plan: Continue routine postop care. Continue hip precautions with abductor pillow. Continue antocoagulation with Xarelto. Weightbearing as tolerated with a walker. Leave dressing in place for 10 days. Appreciate input from internal medicine. Likely discharge to rehab in the next 1-2 days when medically cleared.
[2018-04-24] MEDS: RIVAROXABAN 10 MG TAB PO SCH ×2 (07:56→09:05)
[2018-04-24] MEDS: GABAPENTIN 300 MG CAP PO SCH (07:56)
[2018-04-24] MEDS: FAMOTIDINE 20 MG TAB PO SCH (07:56)
[2018-04-24] MEDS: NICOTINE 21MG/24HR PATCH TRANSDERM SCH (07:56)
[2018-04-24] MEDS: SYMBICORT 160-4.5 MCG INHALER INHALATION SCH (08:43)
--- NOTE | 2018-04-24 12:38 | P.PN ---
Subjective This is a pleasant 68-year-old male past medical history significant for hypertension in the past for which he used to take medications and currently is not on any type hypertensive agents, history of CVA in the past, dyslipidemia, COPD and heavy nicotine dependence. He denies any history of coronary artery disease, his daughter at the bedside as well states he does not have any history of coronary artery disease that they're aware of. He underwent left hip hemiarthroplasty yesterday. He is seen and examined laying flat in bed in no acute distress. Echo obtained reveals preserved LV systolic function with EF 60-65% with no valvular abnormalities. Blood pressure 128/74 heart rate 114. Laboratory data reviewed, WBC 10.6, hgb 15.1, plt 118. HEENT: Head is atraumatic, normocephalic. Pupils are equal, round. Sclerae anicteric. Conjunctivae are clear. Mucous membranes of the mouth are moist. Neck is supple. There is no jugular venous distention. No carotid bruit is heard. LUNGS: Faint expiratory wheezes noted, no rales or rhonchi. No chest wall tenderness is noted on palpation or with deep breathing. HEART: Regular rate and rhythm without murmurs, rubs or gallops. S1 and S2 heard. EXTREMITIES: Trace non-pitting edema to left lower extremity. No edema on the right. ASSESSMENT Left hip fracture status post mechanical fall Hypertension, in the past was on medications however does not currently take any antihypertensives Dyslipidemia COPD History of CVA Chronic nicotine dependence PLAN Stable from a cardiac perspective. Continue current medical regimen. We will continue to follow as needed, please feel free to call with questions or concerns. Nurse Practitioner note has been reviewed, I agree with a documented findings and plan of care. Patient was seen and examined. Objective - Vital Signs Vital signs: Vital Signs Temp 98.7 F 04/24/18 07:42 Pulse 100 04/24/18 08:55 Resp 15 04/24/18 08:35 BP 128/74 04/24/18 07:42 Pulse Ox 93 L 04/24/18 08:43 Intake & Output 04/23/18 04/24/18 04/24/18 18:59 06:59 18:59 Intake Total 1001 840 Output Total 300 700 Balance 701 140 Intake: IV 1001 Intake, IV Titration 600 Amount Sodium Chloride 0.9% 1, 600 000 ml @ 75 mls/hr IV . [id number] [facility] Rx#:[id number] Oral 240 Output: Urine 200 700 Estimated Blood Loss 100 Other: Voiding Method Indwelling Catheter Indwelling Catheter # Voids 2 - Labs CBC & Chem 7: 04/23/18 11:18 04/21/18 14:01
--- NOTE | 2018-04-24 13:42 | P.PN ---
Subjective Progress Note Date: 04/24/18 Principal diagnosis: Left displaced femoral neck fracture. This is a 68-year-old white male patient Dr. Ponce, who was brought into the emergency department on 04/21/2018 after falling at home, sustaining a hip fracture. Patient fell backwards yesterday at his home, he hit his head and his left hip. He was unable to stand up, or bear weight on the left leg. X- rays were done in the emergency department and showed a femoral neck fracture of the left femur. Patient's past medical history is significant for coronary artery disease, COPD, he is not on oxygen at his baseline, he is a former smoker , he carries [id number] smoking history, previous history of CVA/TIA, GERD, hypertension and hyperlipidemia. Patient was evaluated by orthopedic surgery, and he was recommended for left hip hemiarthroplasty pending medical clearance and consent. From pulmonary standpoint patient denies any shortness of breath, patient does have an extensive smoking history, but he is typically not short of breath on a regular basis. Patient is not on any inhalers on a regular basis. Physical exam reveals diminished breath sounds bilaterally, his chest x- ray showed no acute process. He is currently on 2 L per nasal cannula, and his pulse ox is 94%, patient has been afebrile, hemodynamically stable. The patient is seen today April 24 2018 in follow-up on the surgical floor. He is currently awake and alert in no acute distress. He is sitting up in a chair at the bedside. His pain is well controlled. He denies any shortness of breath, cough or congestion. No chills or night sweats. He is maintaining good O2 saturations in the 90s on 4 L/m per nasal cannula. He is afebrile. Hemodynamically stable. The plan is to discharge her inpatient rehabilitation. He remains on DuoNeb inhalations, Symbicort, Habitrol patch. He's anticoagulated with Xarelto. Objective - Vital Signs Vital signs: Vital Signs Temp 98.7 F 04/24/18 07:42 Pulse 100 04/24/18 13:29 Resp 15 04/24/18 08:35 BP 128/74 04/24/18 07:42 Pulse Ox 93 L 04/24/18 08:43 Intake & Output 04/23/18 04/24/18 04/24/18 18:59 06:59 18:59 Intake Total 1001 840 Output Total 300 700 Balance 701 140 Intake: IV 1001 Intake, IV Titration 600 Amount Sodium Chloride 0.9% 1, 600 000 ml @ 75 mls/hr IV . [id number] [facility] Rx#:[id number] Oral 240 Output: Urine 200 700 Estimated Blood Loss 100 Other: Voiding Method Indwelling Catheter Indwelling Catheter # Voids 2 - Exam GENERAL EXAM: Alert, pleasant 68-year-old white male, comfortable in no apparent distress. HEAD: Normocephalic/atraumatic. EYES: Normal reaction of pupils, equal size. Conjunctiva pink, sclera white. NOSE: Clear with pink turbinates. THROAT: No erythema or exudates. NECK: No masses, no JVD, no thyroid enlargement, no adenopathy. CHEST: No chest wall deformity. Symmetrical expansion. LUNGS: Diminished breath sounds bilaterally with no crackles, wheeze, rhonchi or dullness. CVS: Regular rate and rhythm, normal S1 and S2, no gallops, no murmurs, no rubs ABDOMEN: Soft, nontender. No hepatosplenomegaly, normal bowel sounds, no guarding or rigidity. EXTREMITIES: No clubbing, no edema, no cyanosis, 2+ pulses and upper and lower extremities. MUSCULOSKELETAL: Muscle strength and tone normal. Dressing to the left hip site is dry and intact, soft, tender, distal pulses are intact SPINE: No scoliosis or deformity SKIN: No rashes CENTRAL NERVOUS SYSTEM: Alert and oriented -3. No focal deficits, tone is normal in all 4 extremities. PSYCHIATRIC: Alert and oriented -3. Appropriate affect. Intact judgment and insight. - Labs CBC & Chem 7: 04/23/18 11:18 04/21/18 14:01 Assessment and Plan Assessment: Assessment: #1. Fall at home #2. Left displaced femoral neck fracture, status post left hip hemiarthroplasty on 04/23/2018 #3. COPD, severity of which is unknown at this time. Patient is not oxygen or prednisone dependent at his baseline #4. Coronary artery disease #5. Previous history of CVA/TIA #6. GERD #7. Hypertention #8. Hyperlipidemia Plan: The patient was seen and evaluated by Dr. Yates. He is doing well from the pulmonary standpoint. Continues to work well with the incentive spirometer and cough and deep breathing exercises. Titrate down the FiO2. Continue bronchodilators and Symbicort. The plan is for inpatient rehabilitation post discharge. We'll continue to follow. I, the cosigning physician, performed a history & physical examination of the patient. Lungs sounds with faint end expiratory wheeze. Maintaining good O2 saturations in the 90s on 4 L/m per nasal cannula. I discussed the assessment and plan of care with my nurse practitioner, Teri Wallace. I attest to the above note as dictated by her.
--- NOTE | 2018-04-24 14:04 | P.PN ---
Subjective Progress Note Date: 04/24/18 This is a 68-year-old male patient Dr. Ponce with a past medical history of CVA, myocardial infarction, cardiomyopathy, cirrhosis of the liver, AAA being monitored by Dr. Harika Ariza, emphysema, chronic pain status post previous back surgery, pain stimulator placement, tobacco use and dependence. Patient apparently fell in the morning approximately 1 AM while trying to get the bathroom with his walker. He and up falling backwards and hit his head on the bed and landed on his left side. He was not found until 11 hours later. He normally has a shuffling gait but family deny history of Parkinson's. His last fall was 1 year ago. He currently lives with his daughter in a [id number] suite. Patient came into [facility] emergency center for evaluation. Left hip x-ray and pelvis showed a left hip fracture. Chest x-ray showed no acute findings. Hemoglobin was 16.5, white count 11.7, platelet count 149, creatinine 0.87, blood sugar 122. Patient denies history of diabetes. Patient is been admitted under the care of orthopedics with plan for hemiarthroplasty later today which will be postponed. We will ask for clearance from cardiology and primary medicine. Patient will be started on DuoNeb treatments, inhaled steroids, nicotine patch and EKG ordered. 04/23: Patient has been seen by pulmonary medicine and change Pulmicort to Symbicort. Patient was cleared for surgery by Dr. Dunbar. The patient has been seen by cardiology and cleared for surgery. Patient is scheduled for left hip hemiarthroplasty today. Patient has been afebrile. Heart rate running between 96 and 109. Pulse ox 94% on room air. Blood pressure is on the high side this morning at 181/89. Patient is gone for surgery. 04/24: Patient underwent successful left hemiarthroplasty done yesterday by Dr. Camargo. Patient has had no postop complications. He is currently weightbearing as tolerated. Pain is controlled. Current dressing is to remain in place for 10 days. Xarelto is DVT prophylaxis. Patient is found sitting up in a chair and appears to be comfortable. He is on oxygen with pulse ox is 93% on 4 L nasal cannula. Plan to titrate oxygen down. Schuler remains in place which is to be discontinued today. Cardiology is now following on an as-needed basis only. Patient's daughter has decided the patient go to subacute rehab at either [facility] in [place] or [facility]. Patient is a pre-cert and doubt that arrangements will be completed today but case management and psychiatric social worker following. Medication reconciliation has been completed. Review Of Systems: Constitutional: No fever, no chills, no night sweats. No weight change. No weakness, fatigue or lethargy. No daytime sleepiness. EENT: No headache. No blurred vision or double vision, no loss of vision. No loss of Hearing, no ringing in the ears, no dizziness. No nasal drainage or congestion. No epistaxis. No sore throat. Lungs: No shortness of breath, cough, no sputum production. No wheezing. Cardiovascular: No chest pain, no lower extremity edema. No palpitations. No paroxysmal nocturnal dyspnea. No orthopnea. No lightheadedness or dizziness. No syncopal episodes. Abdominal: No abdominal pain. No nausea, vomiting. No diarrhea. No constipation. No bloody or tarry stools.. No loss of appetite. Genitourinary: No dysuria, increased frequency, urgency. No urinary retention. Musculoskeletal: No myalgias. + muscle weakness, + gait dysfunction, no frequent falls. No back pain. No neck pain. Positive left hip discomfort. Integumentary: No wounds, no lesions. No rash or pruritus. No unusual bruising. No change in hair or nails. Neurologic: No aphasia. No facial droop. No change in mentation. No head injury. No headache. No paralysis. No paresthesia. Psychiatric: No depression. No anxiety. No mood swings. Endocrine: No abnormal blood sugars. No weight change. No excessive sweating or thirst. No cold intolerance. No weight change. Objective - Vital Signs Vital signs: Vital Signs Temp 98.7 F 04/24/18 07:42 Pulse 114 H 04/24/18 07:42 Resp 15 04/24/18 07:42 BP 128/74 04/24/18 07:42 Pulse Ox 93 L 04/24/18 07:42 Intake & Output 04/23/18 04/24/18 04/24/18 18:59 06:59 18:59 Intake Total 1001 840 Output Total 300 700 Balance 701 140 Intake: IV 1001 Intake, IV Titration 600 Amount Sodium Chloride 0.9% 1, 600 000 ml @ 75 mls/hr IV . [id number] [facility] Rx#:[id number] Oral 240 Output: Urine 200 700 Estimated Blood Loss 100 Other: Voiding Method Indwelling Catheter # Voids 2 - Exam Gen: This is a thin appearing 68-year-old male. He is sitting in a chair at the bedside and appears to be comfortable and in no acute distress. HEENT: Head is atraumatic, normocephalic. Pupils equal, round. Sclerae is anicteric. NECK: Supple. No JVD. No lymphadenopathy. No thyromegaly. LUNGS: Clear to auscultation. No wheezes or rhonchi. No intercostal retractions. HEART: Regular rate and rhythm. No murmur. ABDOMEN: Soft. Bowel sounds are present. No masses. No tenderness. Schuler in place draining clear raul urine. EXTREMITIES: No pedal edema. No calf tenderness. Dressing in place to the left hip with no breakthrough bleeding or drainage. Dorsalis pedis is palpable bilaterally. NEUROLOGICAL: Patient is awake, alert and oriented x3. Cranial nerves 2 through 12 are grossly intact. - Labs CBC & Chem 7: 04/23/18 11:18 18 14:01 Labs: Abnormal Lab Results - Last 24 Hours (Table) 04/23/18 Range/Units 11:18 MCV 101.3 H (80.0-100.0) fL Plt Count 118 L (150-450) k/uL Neutrophils # 8.5 H (1.3-7.7) k/uL Lymphocytes # 0.9 L (1.0-4.8) k/uL Assessment and Plan Plan: 1. Left hip fracture admitted under the care of orthopedics status post left hemiarthroplasty. Continue current pain management, Xarelto for DVT prophylaxis , incentive spirometry to reduce incidence of atelectasis and hospital-acquired pneumonia. 2. History of stroke. Patient on aspirin 81 mg, Lipitor and fish oil. 3. Abdominal aortic aneurysm being monitored by Dr. Ponce. 4. COPD with mild exacerbation. Patient started on DuoNeb treatments, Symbicort. Pulmicort consult requested. 5. Tobacco use and dependence. Nicotine patch. 6. History of cirrhosis of the liver. Patient has no recent alcohol intake. 7. Patient gives history of myocardial infarction. No complaints of chest pain at this time EKG ordered and cardiology consult. 8. Chronic pain syndrome, chronic low back pain status post surgery and pain stimulator. Continue [place], gabapentin, Requip. 9. Hyperlipidemia. Continue Lipitor. Fish oil on hold. 10. DVT prophylaxis. 11. GI prophylaxis. Pepcid. Discharge plan: Subacute rehab at either [facility] in [place] or [facility] once insurance authorization is obtained and arrangements are completed. Impression and plan of care have been directed as dictated by the signing physician. Sammie Pena nurse practitioner acting as scribe for signing physician.
--- NOTE | 2018-04-24 14:35 | P.DS ---
Providers Date of admission: 04/21/18 14:59 Expected date of discharge: 04/24/18 Attending physician: Moisés Camargo Consults: 04/21/18 14:59 Consult Physician Stat Consulting Provider: Richi Gan Consult Reason/Comments: Surgical clearance Do you want consulting provider notified?: Yes 04/22/18 10:47 Consult Physician Routine Consulting Provider: Toñito Dunbar Consult Reason/Comments: COPD, surgical clearance Do you want consulting provider notified?: Yes 04/22/18 10:48 Consult Physician Routine Consulting Provider: Nasir Treviño Consult Reason/Comments: surgical clearance Do you want consulting provider notified?: Yes Primary care physician: Radha Huffmanfernley - Discharge Diagnosis(es) (1) Fall Current Visit: Yes Status: Acute (2) Left displaced femoral neck fracture Current Visit: Yes Status: Acute Hospital Course: This is a 68-year-old male who sustained a left hip fracture after a fall on 04/21/2018. The patient is admitted for orthopedic evaluation. After discussion and consideration patient elects to proceed with left hip hemiarthroplasty. The patient is seen preoperatively by Dr. Camargo and cleared for surgery by internal medicine, cardiology and pulmonology . Patient is admitted to [facility] on 04/21/2018 and left hip hemiarthroplasty is done on 04/23/2018. The procedures performed without complication or sequelae. The patient is doing well postoperatively. Labs and vital signs are stable on day of discharge. On day of discharge patient's hip incision is healing well. There is minimal erythema. There is no drainage noted at this time. There is minimal soft tissue swelling to the hip and thigh. Patient has full foot and ankle motion without difficulty or pain. Neurovascular status to the left lower extremity is intact. Patient is discharged to rehab in good condition. Please see med rec for accurate list of home medications. Patient Condition at Discharge: Fair Plan - Discharge Summary Discharge Rx Participant: Yes New Discharge Prescriptions: New HYDROcodone/APAP 5-325MG [Perry 5-325] 1 - 2 tab PO Q4-6H PRN #84 tab PRN Reason: Pain Rivaroxaban [Xarelto] 10 mg PO DAILY #30 tab Sennosides [Senokot] 1 tab PO BID #60 tablet Budesonide-Formot 160-4.5 Mcg [Symbicort 160-4.5 Mcg Inhaler] 2 puff INHALATION RT-BID puff Famotidine [Pepcid] 20 mg PO DAILY tab Ipratropium-Albuterol Nebulize [Duoneb 0.5 mg-3 mg/3 ml Soln] 3 ml INHALATION RT-Q6H PRN ampul.neb PRN Reason: Wheezing Nicotine 21Mg/24Hr Patch [Habitrol] 1 patch TRANSDERM DAILY patch Continue Ergocalciferol (Vitamin D2) [Vitamin D2] 50,000 unit PO TH Atorvastatin [Lipitor] 20 mg PO HS rOPINIRole HCL [Requip] 1 mg PO HS Fish Oil/Dha/Epa [Fish Oil 1,200 mg Fish Oil] 1 cap PO DAILY Aspirin EC [Ecotrin Low Dose] 81 mg PO DAILY #0 Changed Gabapentin 600 mg PO BID #0 Discontinued Hydrocodone/Acetaminophen [Perry 10-325] 1 tab PO BID PRN PRN Reason: Pain Discharge Medication List Atorvastatin [Lipitor] 20 mg PO HS 04/21/18 [History] Ergocalciferol (Vitamin D2) [Vitamin D2] 50,000 unit PO TH 04/21/18 [History] Fish Oil/Dha/Epa [Fish Oil 1,200 mg Fish Oil] 1 cap PO DAILY 04/21/18 [History] rOPINIRole HCL [Requip] 1 mg PO HS 04/21/18 [History] Aspirin EC [Ecotrin Low Dose] 81 mg PO DAILY #0 04/24/18 [Rx] Budesonide-Formot 160-4.5 Mcg [Symbicort 160-4.5 Mcg Inhaler] 2 puff INHALATION RT-BID puff 04/24/18 [Rx] Famotidine [Pepcid] 20 mg PO DAILY tab 04/24/18 [Rx] Gabapentin 600 mg PO BID #0 04/24/18 [Rx] HYDROcodone/APAP 5-325MG [Perry 5-325] 1 - 2 tab PO Q4-6H PRN #84 tab 04/24/18 [ Rx] Ipratropium-Albuterol Nebulize [Duoneb 0.5 mg-3 mg/3 ml Soln] 3 ml INHALATION RT -Q6H PRN ampul.neb 04/24/18 [Rx] Nicotine 21Mg/24Hr Patch [Habitrol] 1 patch TRANSDERM DAILY patch 04/24/18 [Rx] Rivaroxaban [Xarelto] 10 mg PO DAILY #30 tab 04/24/18 [Rx] Sennosides [Senokot] 1 tab PO BID #60 tablet 04/24/18 [Rx] Follow up Appointment(s)/Referral(s): Radha Ponce MD [Primary Care Provider] - 1 Week (After discharge from [facility]) Moisés Camargo DO [Doctor of Osteopathic Medicine] - 2 Weeks Activity/Diet/Wound Care/Special Instructions: Hold aspirin until patient has completed course of Xarelto. Weightbearing as tolerated with a walker. Leave dressing intact. Dressing may be removed by home care nurse in 10 days. May shower with dressing on. Continue use if abductor pillow for 6 weeks postoperatively. Follow-up with [facility] in 2 weeks, please call with any questions or concerns [phone]. Discharge Disposition: TRANSFER TO SNF/ECF
[2018-04-24] MEDS: SODIUM CHLORIDE 0.9% 1,000 ML IV SCH (14:46)
[2018-04-24 15:04] VITALS: BP 121/65; TEMP 97.9
[2018-04-24 16:20] VITALS: PULSE 100
== END 2018-04-24 18:01 | DRG 470 ==
LOC: EC 13:35 → 4SSUR 14:59
PROVIDERS: ADMIT Orthopaedic Surgery; ATTEND Orthopaedic Surgery
PROC: 0SRS01A Replacement of Left Hip Joint, Femoral Surface with Metal Synthetic Substitute, Uncemented, Open Approach (ICD-10-PCS; principal; 2018-04-23 09:00)
DX: S72.012A Unspecified intracapsular fracture of left femur, initial encounter for closed fracture (principal); I42.9 Cardiomyopathy, unspecified; J43.9 Emphysema, unspecified; K74.60 Unspecified cirrhosis of liver; K59.03 Drug induced constipation; T39.1X5A Adverse effect of 4-Aminophenol derivatives, initial encounter; G89.4 Chronic pain syndrome; E78.5 Hyperlipidemia, unspecified; I25.10 Atherosclerotic heart disease of native coronary artery without angina pectoris; K21.9 Gastro-esophageal reflux disease without esophagitis; M19.91 Primary osteoarthritis, unspecified site; I25.2 Old myocardial infarction; I71.4 Abdominal aortic aneurysm, without rupture; M54.9 Dorsalgia, unspecified; I10 Essential (primary) hypertension; F17.210 Nicotine dependence, cigarettes, uncomplicated; Z71.6 Tobacco abuse counseling; Z79.82 Long term (current) use of aspirin; Z79.899 Other long term (current) drug therapy; Z90.49 Acquired absence of other specified parts of digestive tract; Z86.12 Personal history of poliomyelitis; Z86.73 Personal history of transient ischemic attack (TIA), and cerebral infarction without residual deficits; Z96.89 Presence of other specified functional implants; Z88.0 Allergy status to penicillin; W01.198A Fall on same level from slipping, tripping and stumbling with subsequent striking against other object, initial encounter; Y92.009 Unspecified place in unspecified non-institutional (private) residence as the place of occurrence of the external cause
CPT/HCPCS: 36415; 71045; 73502; 80053; 81001; 82550; 85025; 85610; 85730; 88305; 88311; 93005; 93306; 94640; 94760; 96374; 96375; 99285